=== PATIENT | male | born 1975 | race Hispanic/Latino ===

== ENCOUNTER 2018-11-23 06:59 | Day surgery (SDC) | payer OTHER ==
[2018-11-17 10:52] LABS: BASOPHILS % (AUTO) 0.5 % (0.0-5.0); HEMATOCRIT 42.2 % (42-54); LYMPHOCYTES % (AUTO) 27.9 % (21.0-51.0); MEAN CORPUSCULAR HEMOGLOBIN 30.6 pg (27.0-33.0); MEAN CORPUSCULAR HGB CONC 33.7 g/dL (32.0-36.0); MEAN CORPUSCULAR VOLUME 90.8 fL (79-99); MONOCYTES % (AUTO) 6.3 % (3.0-13.0); NEUTROPHILS % (AUTO) 64.3 % (40.0-77.0); PLATELET COUNT (AUTO) 235 K/uL (130-400); RED BLOOD CELL COUNT(AUTO) 4.64 MIL/uL (4.50-6.20); RED CELL DISTRIBUTION WIDTH 13.6 % (11.0-15.5); WHITE BLOOD COUNT (AUTO) 9.2 K/uL (4.8-10.8)
[2018-11-17 11:01] LABS: POTASSIUM 4.5 mmol/L (3.5-5.1)
[2018-11-17 11:08] VITALS: BP 152/93
[~2018-11-23] VITALS: Ht 175.3 cm; Wt 114.8 kg
[2018-11-23] VITALS (19 sets, daily range): BP systolic 126–172; BP diastolic 71–104
[~2018-11-23 06:59] MED LIST: ATOR40TA71 PO; CEFAZOLIN SODIUM 1 GM VIAL IVP SCH
[2018-11-23] MEDS ORDERED: LACTATED RINGERS 1000ML 1,000 ML IV ONE (07:28)
--- NOTE | 2018-11-23 07:40 | NUR ---
POTENTIAL FOR INFECTION: SHAVED RIGHT SHOULDER / ARM FOLLOWED BY WIPING WITH MARGARETH: 2% CHLORHEXIDINE GLUCONATE CLOTH PATIENTS PRE-OP SKIN PREP PER ASHLEY AYALA
[2018-11-23] MEDS: CEFAZOLIN SODIUM 1 GM VIAL ONE ×2 (07:45→09:00)
[2018-11-23] MEDS ORDERED: ROPIVACAINE 0.5% 5MG/ML 30ML IJ ONE (08:07)
[2018-11-23] MEDS ORDERED: LIDOCAINE PF 2% 5ML ABBOJECT ONE (08:07)
[2018-11-23] MEDS ORDERED: ONDANSETRON HCL MDV 20ML 2 MG/ML VIAL ONE (08:07)
[2018-11-23] MEDS ORDERED: SUCCINYLCHOLINE 200MG/10ML SYR ONE (08:07)
[2018-11-23] MEDS ORDERED: MIDAZOLAM HCL 1 MG/ML 2ML VIAL ONE ×2 (08:07→08:32)
[2018-11-23] MEDS ORDERED: FENTANYL CITRATE PF 50 MCG/1 ML 2ML VIAL ONE (08:07)
[2018-11-23] MEDS ORDERED: ROCURONIUM 10MG/1ML SYR 10 MG/ML ML ONE (08:07)
[2018-11-23] MEDS ORDERED: PROPOFOL 10 MG/ML 20ML VIAL IV ONE (08:07)
[2018-11-23] MEDS ORDERED: GLYCOPYRROLATE 1 MG/5 ML SYRINGE ONE (08:09)
[2018-11-23] MEDS ORDERED: NEOSTIGMINE 5MG/5ML SYR IV ONE (09:59)
[2018-11-23] MEDS ORDERED: MEPERIDINE-PF 25 MG/ML SYG ONE (10:35)
== END 2018-11-23 12:17 | disposition home or self-care (01) ==
LOC: DAH 06:59
PROVIDERS: ATTEND Orthopaedic Surgery
DX: M75.101 Unspecified rotator cuff tear or rupture of right shoulder, not specified as traumatic (principal); M75.41 Impingement syndrome of right shoulder; Z68.38 Body mass index [BMI] 38.0-38.9, adult; Z98.890 Other specified postprocedural states; E11.9 Type 2 diabetes mellitus without complications; E78.00 Pure hypercholesterolemia, unspecified; M19.90 Unspecified osteoarthritis, unspecified site; Z79.899 Other long term (current) drug therapy
CPT/HCPCS: 29826; 29827; 36415; 80048; 85025; A4215; A4218; A4248; A4452; A4649 ×6; A4930 ×2; C1713 ×2; J0330; J0690; J2001; J2175; J2250 ×2; J2704; J2710; J2795; J3010; J3490; J7120 ×2